=== PATIENT | female | born 1950 | race Two or more races ===

== ENCOUNTER 2022-03-22 19:01 | Emergency (ER) | payer MEDICAID, OTHER ==
[~2022-03-22] VITALS: Ht 180.3 cm; Wt 74.8 kg
[2022-03-22] MEDS ORDERED: ONDANSETRON HCL/PF 4 MG/2 ML VIAL IVP ONE (19:30)
[2022-03-22] MEDS ORDERED: IV NS 0.9% 1,000 ML BAG IV ONE (19:30)
[2022-03-22] MEDS ORDERED: PANTOPRAZOLE 40 MG VIAL IV ONE (19:30)
--- NOTE | 2022-03-22 19:30 | NUR ---
[id number] FROM HOME C/O SYNCOPAL EPISODE, HAD A COUPLE OF DRINK AT A LIBERTARIAN GIVEN 500ML NS ENROUTE. PATIENT ALERT AND ORIENTED X3. AMBULATORY WITH NON LABORED BREATHING. IN BED 07 ON MONITOR AWAITING MD SHARMA.
[2022-03-22] MEDS ORDERED: PANTOPRAZOLE 40 MG VIAL ONE (19:53)
[2022-03-22] MEDS ORDERED: diphenhydrAMINE HCL 50 MG/ML VIAL ONE (19:53)
[2022-03-22] MEDS ORDERED: ONDANSETRON HCL/PF 4 MG/2 ML VIAL ONE (19:53)
--- NOTE | 2022-03-22 19:55 | NUR ---
Moriah ball in ED - 03/22/22 at 2001 by [address]IE SH[address]AN AT CT[address]
--- NOTE | 2022-03-22 19:55 | NUR ---
PATIENT AT CT.
[2022-03-22] MEDS ORDERED: diphenhydrAMINE HCL 50 MG/ML VIAL IV ONE (20:00)
[2022-03-22 20:54] LABS: BASOPHILS % (AUTO) 0.2 % (0.0-2.0); EOSINOPHILS % (AUTO) 0.5 % (0.0-6.0); HEMATOCRIT 44 % (33-45); HEMOGLOBIN 14.3 g/dL (11.5-14.8); LYMPHOCYTES # (AUTO) 2.1 K/uL (0.8-4.8); LYMPHOCYTES % (AUTO) 12.5 % (20.0-44.0); MEAN CORPUSCULAR HGB CONC 33 g/dl (31.0-36.0); MEAN CORPUSCULAR VOLUME 91 fL (82-100); MONOCYTES # (AUTO) 0.8 K/uL (0.1-1.30); NEUTROPHILS % (AUTO) 81.8 % (43.0-81.0); PLATELET COUNT (AUTO) 299 K/uL (150-450); RED BLOOD CELL COUNT(AUTO) 4.77 MIL/uL (4.0-5.2); WHITE BLOOD COUNT (AUTO) 17.1 K/uL (4.3-11.0)
[2022-03-22 21:08] LABS: CARBON DIOXIDE 20 mmol/L (21-32); CHLORIDE 106 mmol/L (98-107); CREATININE 1.8 mg/dL (0.6-1.3); GLUCOSE 181 mg/dL (74-106); POTASSIUM 3.8 mmol/L (3.5-5.1); SODIUM SERUM 142 mmol/L (136-145); UREA NITROGEN, BLOOD 38 mg/dL (7-18)
[2022-03-22 21:09] LABS: SERUM AMMONIA 13 umol/L (11-32)
[2022-03-22] MEDS ORDERED: CETI-108 PO (21:09)
[2022-03-22] MEDS ORDERED: ONDA4TAB5 PO (21:09)
[2022-03-22 21:19] LABS: ALANINE AMINOTRANSFERASE 26 U/L (12-78); ALBUMIN 3.5 g/dL (3.4-5.0); ALCOHOL, BLOOD 127 mg/dL (0-0); ALKALINE PHOSPHATASE 50 U/L (46-116); ASPARTATE AMINOTRANSFERASE 28 U/L (15-37); BILIRUBIN,DIRECT 0.1 mg/dL (0.0-0.2); BILIRUBIN,TOTAL 0.6 mg/dL (0.2-1.0); TOTAL PROTEIN, SERUM 7.6 g/dL (6.4-8.2)
--- NOTE | 2022-03-22 22:06 | NUR ---
IV removed. Catheter intact and site benign. Pressure and 4x4 applied to site. No bleeding noted.Patient discharged to home in stable condition. Written and verbal after care instructions given to daughter verbalizes understanding of instruction.
[2022-03-22 22:07] VITALS: BP 106/62
== END 2022-03-22 21:55 | disposition home or self-care (01) ==
LOC: ER 19:49
DX: R55 Syncope and collapse (principal); R11.2 Nausea with vomiting, unspecified; L50.9 Urticaria, unspecified; I10 Essential (primary) hypertension; E11.9 Type 2 diabetes mellitus without complications
CPT/HCPCS: 99285; 96374; 96361; 96375; 93005; 71045; 70450; 74176; 82140; 85025; 80048; 80076; 36415; 80320; J1200; J2405; J7030; C9113; G0480